=== PATIENT | female | born 1965 | race American Indian/Alaskan Native ===

== ENCOUNTER 2020-05-31 16:41 | Emergency (ER) | payer SELFPAY ==
[2020-05-31] MEDS ORDERED: ACETAMINOPHEN 325 MG TAB PO ONE (17:12)
[2020-05-31] MEDS ORDERED: SODIUM CHLORIDE 0.9% 500 ML 500 ML IV ONE (17:14)
[2020-05-31 17:49] LABS: Basophils % (Auto) 0.4 % (0.0-1.8); Hematocrit 33.8 % (30.3-42.9); Hemoglobin 11.6 gm/dl (10.1-14.3); Lymphocytes # (Auto) 1.1 K/mm3 (1.2-5.4); Lymphocytes % (Auto) 9.9 % (13.4-35.0); Mean Corpuscular HGB Conc 34 % (30-34); Mean Corpuscular Volume 112 fl (79-97); Monocytes # (Auto) 0.9 K/mm3 (0.0-0.8); Monocytes % (Auto) 7.7 % (0.0-7.3); Platelet Count 169 K/mm3 (140-440); Red Blood Count 3.02 M/mm3 (3.65-5.03); Red Cell Distribution Width 13.7 % (13.2-15.2)
--- NOTE | 2020-05-31 18:10 | XRay Report ---
CHEST 1 VIEW 05/31/2020 5:57 PM INDICATION / CLINICAL INFORMATION: possible Sepsis. COMPARISON: None available. FINDINGS: SUPPORT DEVICES: None. HEART / MEDIASTINUM: No significant abnormality. LUNGS / PLEURA: No significant pulmonary or pleural abnormality. No pneumothorax. ADDITIONAL FINDINGS: No significant additional findings. IMPRESSION: 1. No acute findings. Signer Name: Wyatt Laughlin MD Signed: 05/31/2020 6:05 PM Workstation Name: [id number]
[2020-05-31 18:12] LABS: Albumin 3.6 g/dL (3.9-5); Calcium 8.4 mg/dL (8.4-10.2)
[2020-05-31 18:26] LABS: INR 1.01 (0.87-1.13)
[2020-05-31 19:39] LABS: Bilirubin,Urine NEG (Negative); Blood,Urine LG (Negative); Color,Urine Yellow (Yellow); Mucus,Urine FEW /HPF; Protein,Urine <15 mg/dL mg/dL (Negative); Urobilinogen,Urine < 2.0 mg/dL (<2.0); WBC,Urine < 1.0 /HPF (0.0-6.0)
--- NOTE | 2020-05-31 21:35 | Emergency Department Report ---
ED General Adult HPI - General Chief complaint: Chest Pain Stated complaint: CHEST WALL PAIN Time Seen by Provider: 05/31/20 21:13 Source: patient Mode of arrival: Wheelchair Limitations: No Limitations - History of Present Illness Initial comments: 55-year-old female presents to ED with complaint of diffuse body pain. Patient states symptoms started earlier today. She reports chest wall pain, and back pain in addition to the rest of her body hurting. Pain is worse with movement. Patient reports vomiting, diarrhea, cough. Patient also reports cocaine use on yesterday. -: This morning Severity scale (0 -10): 8 Quality: aching Consistency: constant Improves with: none Worsens with: movement Associated Symptoms: chest pain, cough, nausea/vomiting - Related Data Previous Rx's Medication Instructions Recorded Last Taken Type methOCARBAMOL [Robaxin TAB] 500 mg PO Q8HR PRN #20 tablet 05/31/20 Unknown Rx Allergies Allergy/AdvReac Type Severity Reaction Status Date / Time No Known Allergies Allergy Verified 05/31/20 21:14 ED Review of Systems ROS: Stated complaint: CHEST WALL PAIN Other details as noted in HPI Comment: All other systems reviewed and negative Constitutional: fever Respiratory: cough Cardiovascular: chest pain Gastrointestinal: vomiting, diarrhea Musculoskeletal: back pain, myalgia ED Past Medical Hx - Past Medical History Previous Medical History?: No - Surgical History Past Surgical History?: No - Medications Home Medications: Home Medications Medication Instructions Recorded Confirmed Last Taken Type methOCARBAMOL [Robaxin TAB] 500 mg PO Q8HR PRN #20 tablet 05/31/20 Unknown Rx ED Physical Exam - General Limitations: No Limitations General appearance: alert, in no apparent distress - Head Head exam: Present: atraumatic, normocephalic - Eye Eye exam: Present: normal appearance, EOMI - ENT ENT exam: Present: mucous membranes moist - Neck Neck exam: Present: normal inspection - Respiratory Respiratory exam: Present: normal lung sounds bilaterally, chest wall tenderness. Absent: respiratory distress - Cardiovascular Cardiovascular Exam: Present: regular rate, normal rhythm - GI/Abdominal GI/Abdominal exam: Present: soft. Absent: distended, tenderness - Extremities Exam Extremities exam: Present: normal inspection - Back Exam Back exam: Present: paraspinal tenderness. Absent: vertebral tenderness - Neurological Exam Neurological exam: Present: alert, oriented X3 - Psychiatric Psychiatric exam: Present: normal affect, normal mood - Skin Skin exam: Present: warm, dry, intact, normal color ED Course Vital Signs 05/31/20 05/31/20 05/31/20 17:11 21:40 23:13 Temperature 102.8 F H 99.3 F 99.0 F Pulse Rate 95 H 93 H 78 Respiratory 18 18 18 Rate Blood Pressure 118/88 173/92 166/92 [Left] O2 Sat by Pulse 95 96 98 Oximetry ED Medical Decision Making - Lab Data Result diagrams: 05/31/20 17:21 05/31/20 17:21 - EKG Data -: EKG Interpreted by Me EKG shows normal: sinus rhythm, axis, intervals, QRS complexes, ST-T waves Rate: normal - EKG Data Interpretation: no acute changes - Radiology Data Radiology results: report reviewed, image reviewed - Medical Decision Making Patient with temp of 102.8 upon arrival. She reports generalized body aches, which includes chest pain. Patient has chest wall tenderness on exam. EKG unremarkable, troponin is negative. UA and chest x-ray are both negative. Patient reports cough as well. COVID-19 is in the differential. However, patient is not hypoxic, at rest or with ambulation. She will be discharged at this time. Patient advised to seek outpatient testing for COVID-19. She has been instructed to quarantine for at least 14 days. Patient also reports cocaine use, and I have spoken with her regarding cessation. Return precautions given. - Differential Diagnosis UTI, pneumonia, COVID-19, ACS Critical care attestation.: If time is entered above; I have spent that time in minutes in the direct care of this critically ill patient, excluding procedure time. ED Disposition Clinical Impression: Costochondritis, Viral respiratory illness Disposition: DC-01 TO HOME OR SELFCARE Is pt being admited?: No Condition: Stable Instructions: COVID-19 Additional Instructions: Your chest xray is normal. Your oxygen level is normal. There is a possibility that you may have coronavirus. Please follow up as an outpatient to get tested. You will need to quarantine for at least 14 days. Prescriptions: methOCARBAMOL [Robaxin TAB] 500 mg PO Q8HR PRN #20 tablet PRN Reason: Muscle Spasm Referrals: PRIMARY CARE, [Primary Care Provider] - 3-5 Days [facility] [Provider Group] - 3-5 Days [facility] [Outside] - 3-5 Days [facility] [Outside] - 3-5 Days LIZET ENGLISH MD [Staff Physician] - 3-5 Days Time of Disposition: 22:26
[2020-05-31 23:14] VITALS: BP 166/92
== END 2020-05-31 23:14 | disposition home or self-care (01) ==
LOC: ED 16:41
DX: M94.0 Chondrocostal junction syndrome [Tietze] (principal); J06.9 Acute upper respiratory infection, unspecified
CPT/HCPCS: 36415; 71045; 80053; 81001; 82140; 82805; 84484; 85025; 85610; 87040; 87086; 93005; 99285

== ENCOUNTER 2021-12-22 15:52 | Emergency (ER) | payer SELFPAY ==
[2021-12-22 17:43] LABS: Hematocrit 38.5 % (30.3-42.9); Hemoglobin 12.3 gm/dl (10.1-14.3); Mean Corpuscular HGB Conc 32 % (30-34); Mean Corpuscular Volume 110 fl (79-97); Platelet Count 191 K/mm3 (140-440); Red Blood Count 3.52 M/mm3 (3.65-5.03)
--- NOTE | 2021-12-22 17:54 | Event Note ---
ED Screening Note Date of service: 12/22/21 Time: 17:53 ED Screening Note: Patient presents with complaints of right flank pain and urinary frequency x3 months This initial assessment/diagnostic orders/clinical plan/treatment(s) is/are subject to change based on patients health status, clinical progression and re- assessment by fellow clinical providers in the ED. Further treatment and workup at subsequent clinical providers discretion. Patient/guardian urged not to elope from the ED as their condition may be serious if not clinically assessed and managed. Initial orders include: Labs CT
[2021-12-22 18:03] LABS: Alanine Aminotransferase 26 units/L (7-56); Albumin 3.7 g/dL (3.9-5); BUN/Creatinine Ratio 16; Blood Urea Nitrogen 13 mg/dL (7-17); Calcium 9.4 mg/dL (8.4-10.2); Hemolysis Index 6
--- NOTE | 2021-12-22 18:21 | Emergency Department Report ---
ED Back Pain/Injury HPI - General Chief Complaint: Abdominal Pain Stated Complaint: RT SIDE PAIN/FREQUENT URINING Time Seen by Provider: 12/22/21 17:53 Source: patient Limitations: No Limitations - History of Present Illness Initial Comments: Chief complaint: "Pain in my back and frequent urination." HPI: This is a 56-year-old female with history of hypertension who presents with a "knot in her back. She has had right flank pain for several months. Recently she has had frequent urination with odor. She denies fever, vomiting, abdominal pain. No radiation of the right flank pain. It feels like a dull ache. MD Complaint: back pain -: Gradual, days(s) (Several days of frequent urination), month(s) (3 months of back pain) Place: home Severity: mild Quality: dull Consistency: constant Improves With: none Worsens With: none Associated Symptoms: denies other symptoms - Related Data Previous Rx's Medication Instructions Recorded Last Taken Type methOCARBAMOL [Robaxin TAB] 500 mg PO Q8HR PRN #20 tablet 05/31/20 Unknown Rx cephALEXin [Keflex] 500 mg PO TID 5 Days #15 cap 12/22/21 Unknown Rx traMADoL [Ultram 50 MG tab] 50 mg PO Q6HR PRN #10 tablet 12/22/21 Unknown Rx Allergies Allergy/AdvReac Type Severity Reaction Status Date / Time No Known Allergies Allergy Verified 05/31/20 21:14 ED Review of Systems ROS: Stated complaint: RT SIDE PAIN/FREQUENT URINING Other details as noted in HPI Comment: All other systems reviewed and negative Constitutional: denies: chills, fever, malaise Respiratory: denies: cough, shortness of breath Cardiovascular: denies: chest pain Gastrointestinal: denies: abdominal pain, nausea, vomiting Genitourinary: frequency Musculoskeletal: back pain ED Past Medical Hx - Past Medical History Previous Medical History?: Yes Hx Hypertension: Yes - Social History Smoking Status: Current Every Day Smoker Substance Use Type: Alcohol - Medications Home Medications: Home Medications Medication Instructions Recorded Confirmed Last Taken Type methOCARBAMOL [Robaxin TAB] 500 mg PO Q8HR PRN #20 tablet 05/31/20 Unknown Rx cephALEXin [Keflex] 500 mg PO TID 5 Days #15 cap 12/22/21 Unknown Rx traMADoL [Ultram 50 MG tab] 50 mg PO Q6HR PRN #10 tablet 12/22/21 Unknown Rx ED Physical Exam - General Limitations: No Limitations General appearance: alert, in no apparent distress, other (Well-appearing steady normal gait appears comfortable) - Head Head exam: Present: atraumatic, normocephalic - Eye Eye exam: Present: normal appearance - ENT ENT exam: Present: mucous membranes moist - Neck Neck exam: Present: normal inspection, full ROM - Respiratory Respiratory exam: Present: normal lung sounds bilaterally. Absent: respiratory distress, wheezes, rales, rhonchi - Cardiovascular Cardiovascular Exam: Present: regular rate, normal rhythm, normal heart sounds. Absent: systolic murmur, diastolic murmur, rubs, gallop - GI/Abdominal GI/Abdominal exam: Present: soft, normal bowel sounds. Absent: distended, tenderness, guarding, rebound - Extremities Exam Extremities exam: Present: normal inspection - Back Exam Back exam: Present: normal inspection, full ROM. Absent: tenderness, CVA tenderness (R), CVA tenderness (L), muscle spasm, paraspinal tenderness, vertebral tenderness - Neurological Exam Neurological exam: Present: alert, oriented X3 - Psychiatric Psychiatric exam: Present: normal affect, normal mood - Skin Skin exam: Present: warm, dry, intact, normal color. Absent: rash ED Course Vital Signs 12/22/21 16:43 Temperature 97.6 F Pulse Rate 89 Respiratory 16 Rate Blood Pressure 178/110 O2 Sat by Pulse 99 Oximetry ED Medical Decision Making - Lab Data Result diagrams: 12/22/21 17:12 12/22/21 17:12 - Medical Decision Making 1. Muscle skeletal back pain: Prescribed tramadol 2. UTI: Prescribed cephalexin From presentation I do not suspect pyelonephritis kidney stone. Patient appears well. Referred to internal medicine physician. CBC chemistry within normal limits. Vital signs stable. Critical care attestation.: If time is entered above; I have spent that time in minutes in the direct care of this critically ill patient, excluding procedure time. ED Disposition Clinical Impression: Musculoskeletal back pain, UTI (urinary tract infection) Disposition: HOME / SELF CARE / HOMELESS Is pt being admited?: No Does the pt Need Aspirin: No Condition: Stable Instructions: Abdominal Pain (ED), Urinary Tract Infection, Adult, [id number], Chronic Back Pain, [id number] Prescriptions: cephALEXin [Keflex] 500 mg PO TID 5 Days #15 cap traMADoL [Ultram 50 MG tab] 50 mg PO Q6HR PRN #10 tablet PRN Reason: Pain Referrals: LIZET ENGLISH MD [Staff Physician] - 3-5 Days
[2021-12-22 18:33] VITALS: BP 164/104
[2021-12-23 07:20] LABS: Monocytes % (Manual) 21 % (0.0-7.3)
[2021-12-23 07:21] LABS: Large Platelets Few; Platelet Satelitosis Few
== END 2021-12-22 19:06 | disposition home or self-care (01) ==
LOC: ED 15:52
DX: N39.0 Urinary tract infection, site not specified (principal); M79.18 Myalgia, other site; I10 Essential (primary) hypertension; F17.200 Nicotine dependence, unspecified, uncomplicated; Z72.89 Other problems related to lifestyle; Z79.899 Other long term (current) drug therapy
CPT/HCPCS: 36415; 80053; 85007; 85025; 99283

== ENCOUNTER 2022-05-18 20:56 | Inpatient (IN) | payer SELFPAY ==
[2022-05-18] MEDS ORDERED: SODIUM CHLORIDE 0.9% 1000 ML 1,000 ML IV ONE ×2 (21:44→22:32)
[2022-05-18] MEDS ORDERED: ONDANSETRON 4 MG/2 ML INJ IV ONE (21:44)
[2022-05-18 22:20] LABS: Basophils % (Auto) 0.3 % (0.0-1.8); Eosinophils % (Auto) 0.1 % (0.0-4.3); Hematocrit 31.7 % (30.3-42.9); Hemoglobin 10.6 gm/dl (10.1-14.3); Lymphocytes # (Auto) 0.7 K/mm3 (1.2-5.4); Lymphocytes % (Auto) 8.3 % (13.4-35.0); Mean Corpuscular HGB Conc 33 % (30-34); Mean Corpuscular Volume 108 fl (79-97); Monocytes # (Auto) 0.5 K/mm3 (0.0-0.8); Monocytes % (Auto) 6.1 % (0.0-7.3); Platelet Count 174 K/mm3 (140-440); Red Blood Count 2.94 M/mm3 (3.65-5.03); Red Cell Distribution Width 14.3 % (13.2-15.2)
[2022-05-18 22:32] LABS: Albumin 3.5 g/dL (3.9-5); Calcium 8.9 mg/dL (8.4-10.2)
--- NOTE | 2022-05-18 23:15 | XRay Report ---
CHEST 1 VIEW INDICATION / CLINICAL INFORMATION: CONFUSION; PNA. COMPARISON: Chest x-ray 05/31/2020 FINDINGS: SUPPORT DEVICES: None. HEART / MEDIASTINUM: Heart size is within normal limits. Mediastinal contour demonstrates no signific ant abnormality. LUNGS / PLEURA: No significant pulmonary abnormality. BONES: No significant osseous abnormality. ADDITIONAL FINDINGS: No significant additional findings. IMPRESSION: 1. No active cardiopulmonary disease. Signer Name: Ozzy Fleming II, MD Signed: 05/18/2022 11:11 PM Workstation Name: [id number]
[2022-05-18 23:18] LABS: Bilirubin,Urine Negative (Negative); Blood,Urine Small (Negative); Color,Urine Yellow (Yellow)
[2022-05-18 23:19] LABS: Bacteria,Urine 1+ /HPF (Negative); Hyaline Casts,Urine 2 /LPF; Mucus,Urine FEW /HPF; Urobilinogen,Urine < 2.0 mg/dL (<2.0)
[2022-05-18 23:29] LABS: Amphetamine Screen,Urine PRESUMPTIVE NEGATIVE; Benzodiazepines Screen,Urine PRESUMPTIVE NEGATIVE; Cannabinoid Screen,Urine PRESUMPTIVE NEGATIVE; Cocaine Screen,Urine PRESUMPTIVE POSITIVE; Methadone Screen,Urine PRESUMPTIVE NEGATIVE; Opiate Screen,Urine PRESUMPTIVE NEGATIVE
--- NOTE | 2022-05-18 23:34 | Cat Scan Report ---
CT HEAD WITHOUT CONTRAST INDICATION / CLINICAL INFORMATION: CONFUSION. TECHNIQUE: CT head was performed without administration of intravenous contrast. All CT scans at this location are performed using CT dose reduction for ALARA by means of automated exposure control. COMPARISON: None available. FINDINGS: CEREBRAL HEMISPHERES: Generalized atrophy and bilateral regions of periventricular white matter hypoa ttenuation compatible with microvascular ischemia are demonstrated. No midline shift. Basal cisterns patent. HEMORRHAGE: None. CEREBELLUM / BRAINSTEM: No significant abnormality. ORBITS: No significant abnormality. SOFT TISSUES: No significant abnormality. SKULL: No significant abnormality. PARANASAL SINUSES / MASTOID AIR CELLS: Normal as visualized. ADDITIONAL FINDINGS: None. IMPRESSION: 1. No acute intracranial abnormality. Signer Name: Ozzy Fleming II, MD Signed: 05/18/2022 11:29 PM Workstation Name: [id number]
--- NOTE | 2022-05-18 23:53 | Emergency Department Report ---
ED General Adult HPI - General Chief complaint: Overdose Stated complaint: OVERDOSE PUI?: No Time Seen by Provider: 05/18/22 21:41 Source: EMS Mode of arrival: Stretcher Limitations: No Limitations - History of Present Illness Initial comments: EMS CALLED TO [facility] FOR UNRESPONSIVE PATIENT AND UPON ARRIVAL PATIENT RESPONSIVE TO PAINFUL STIMULI WITH POSSIBLE OVERDOSE TO COCAINE AND PATIENT RESPONDED TO [facility]. PATIENT STATES SHE WAS OUTSIDE IN THE PARKING LOT FOR APPROXIMATELY 2 HOURS AND ONLY TOOK COCAINE AND DENIES TAKING ANYTHING ELSE. PATIENT STATES SHE IS THIRSTY AND WANTS WATER. Patient denies any other symptoms such as fever chill night sweat dizziness blurred vision lightheadedness headache tinnitus ear pain runny nose sore throat loss of taste loss of smell chest pain palpitation short of breath cough abdominal pain nausea vomiting diarrhea constipation joint pain muscle pain new rash and heat or cold intolerance. Severity scale (0 -10): 0 - Related Data Previous Rx's Medication Instructions Recorded Last Taken Type methOCARBAMOL [Robaxin TAB] 500 mg PO Q8HR PRN #20 tablet 05/31/20 Unknown Rx cephALEXin [Keflex] 500 mg PO TID 5 Days #15 cap 12/22/21 Unknown Rx traMADoL [Ultram 50 MG tab] 50 mg PO Q6HR PRN #10 tablet 12/22/21 Unknown Rx Allergies Allergy/AdvReac Type Severity Reaction Status Date / Time No Known Allergies Allergy Verified 05/31/20 21:14 ED Review of Systems ROS: Stated complaint: OVERDOSE Other details as noted in HPI Comment: All other systems reviewed and negative Constitutional: no symptoms reported Eyes: as per HPI ENT: as per HPI Respiratory: no symptoms reported Cardiovascular: as per HPI Endocrine: no symptoms reported Gastrointestinal: as per HPI Genitourinary: as per HPI Musculoskeletal: as per HPI Skin: as per HPI Neurological: as per HPI Psychiatric: as per HPI Hematological/Lymphatic: as per HPI ED Past Medical Hx - Past Medical History Previous Medical History?: Yes Hx Hypertension: Yes (NON-COMPLIANT) Hx HIV: Yes Additional medical history: DRUG USE - Surgical History Past Surgical History?: No - Social History Smoking Status: Current Every Day Smoker Substance Use Type: Alcohol - Medications Home Medications: Home Medications Medication Instructions Recorded Confirmed Last Taken Type methOCARBAMOL [Robaxin TAB] 500 mg PO Q8HR PRN #20 tablet 05/31/20 Unknown Rx cephALEXin [Keflex] 500 mg PO TID 5 Days #15 cap 12/22/21 Unknown Rx traMADoL [Ultram 50 MG tab] 50 mg PO Q6HR PRN #10 tablet 12/22/21 Unknown Rx ED Physical Exam - General Limitations: Other (PATIENT APPEARS SLIGHTLY CONFUSED/SLOW MENTATION) General appearance: alert, in no apparent distress - Head Head exam: Present: atraumatic, normocephalic, normal inspection - Eye Eye exam: Present: normal appearance, PERRL, EOMI Pupils: Present: normal accommodation - ENT ENT exam: Present: normal exam, mucous membranes dry - Neck Neck exam: Present: normal inspection, full ROM - Respiratory Respiratory exam: Present: normal lung sounds bilaterally - Cardiovascular Cardiovascular Exam: Present: regular rate, tachycardia, normal heart sounds - GI/Abdominal GI/Abdominal exam: Present: soft - Extremities Exam Extremities exam: Present: normal inspection, full ROM, normal capillary refill. Absent: tenderness - Back Exam Back exam: Present: normal inspection, full ROM - Neurological Exam Neurological exam: Present: alert, altered, oriented X3 (BUT WITH SLOW ME NTATION/CONFUSION), CN II-XII intact, normal gait - Psychiatric Psychiatric exam: Present: normal affect, normal mood - Skin Skin exam: Present: warm, dry, intact ED Course Vital Signs 05/18/22 21:32 Temperature 103.1 F H Pulse Rate 110 H Respiratory 16 Rate Blood Pressure 164/109 O2 Sat by Pulse 95 Oximetry - Reevaluation(s) Reevaluation #1: 05/18/22 23:[address] THOMPSON WHO KINDLY ACCEPTED THE PATIENT. ED Medical Decision Making - Lab Data Result diagrams: 05/18/22 22:01 05/18/22 22:01 Critical care attestation.: If time is entered above; I have spent that time in minutes in the direct care of this critically ill patient, excluding procedure time. ED Disposition Clinical Impression: UTI (urinary tract infection), NOLVIA (acute kidney injury), Dehydration, Cocaine abuse, Metabolic encephalopathy Disposition: ADMITTED INPATIENT Is pt being admited?: Yes Does the pt Need Aspirin: No Condition: Stable Time of Disposition: 00:00
[2022-05-18] MEDS ORDERED: ACETAMINOPHEN 325 MG TAB PO ONE (23:55)
[2022-05-18] MEDS ORDERED: cefTRIAXone/NS 1 GM/50 ML 1 GM/50 ML BAG IV ONE (23:56)
[2022-05-19] MEDS ORDERED: MORPHINE 2 MG/1 ML INJ IV PRN (00:32)
[2022-05-19] MEDS ORDERED: ONDANSETRON 4 MG/2 ML INJ IV PRN (00:32)
[2022-05-19] MEDS ORDERED: MORPHINE 4 MG/1 ML INJ IV PRN (00:32)
[2022-05-19] MEDS ORDERED: MAGNESIUM HYDROXIDE (MOM) ORAL LIQD UDC PO PRN (00:32)
--- NOTE | 2022-05-19 00:41 | History and Physical Report ---
History of Present Illness Date of examination: 05/19/22 Date of admission: 05/19/2022 Chief complaint: Unresponsiveness History of present illness: 57-year-old female with known history of hypertension and HIV brought into the emergency room today via EMS for evaluation of unresponsiveness. EMS had responded to call a "full house for an unresponsive patient. Patient was said to be at the parking lot for about 2 hours and had taken some cocaine earlier today. Most of the history was gotten from the ER staff as patient appears confused and unable to give a very good history at this time. Upon arrival in the emergency room patient was found to be tachycardic and also had a temperature of about 103 F. Work-up in the emergency room today, lab reveals a CO2 of 15, elevated creatinine of 1.8. Urinalysis significant for UTI. Patient being admitted for unresponsiveness possibly secondary to cocaine overdose, metabolic acidosis, NOLVIA and UTI. Past History Past Medical History: HIV/AIDS, hyperthyroidism Past Surgical History: No surgical history Social history: smoking (Current daily smoker), alcohol abuse, other (Drug Abuse) Family history: no significant family history Medications and Allergies Allergies Allergy/AdvReac Type Severity Reaction Status Date / Time No Known Allergies Allergy Verified 05/31/20 21:14 Home Medications Medication Instructions Recorded Confirmed Last Taken Type methOCARBAMOL [Robaxin TAB] 500 mg PO Q8HR PRN #20 tablet 05/31/20 Unknown Rx cephALEXin [Keflex] 500 mg PO TID 5 Days #15 cap 12/22/21 Unknown Rx traMADoL [Ultram 50 MG tab] 50 mg PO Q6HR PRN #10 tablet 12/22/21 Unknown Rx Active Meds: Active Medications Acetaminophen (Acetaminophen 325 Mg Tab) 650 mg PO Q4H PRN PRN Reason: Pain MILD(1-3)/Fever >100.5/AGUILAR Review of Systems ROS unobtainable: due to mental status Exam - Constitutional Vitals: Temp Pulse Resp BP Pulse Ox 103.1 F H 110 H 16 164/109 95 05/18/22 21:32 05/18/22 21:32 05/18/22 21:32 05/18/22 21:32 05/18/22 21:32 General appearance: Present: no acute distress, well-nourished, other (Dry Oral Mucosa) - EENT Eyes: Present: PERRL, EOM intact ENT: hearing intact, clear oral mucosa, dentition normal - Neck Neck: Present: supple, normal ROM - Respiratory Respiratory effort: normal Respiratory: bilateral: CTA - Cardiovascular Rhythm: regular Heart Sounds: Present: S1 & S2. Absent: gallop, systolic murmur, diastolic murmur, rub, click - Extremities Extremities: no ischemia, pulses intact, No edema, normal temperature, Full ROM Peripheral Pulses: within normal limits - Abdominal General gastrointestinal: Present: soft, non-tender, non-distended, normal bowel sounds. Absent: mass - Integumentary Integumentary: Present: clear, warm, dry, normal turgor. Absent: rash - Musculoskeletal Musculoskeletal: strength equal bilaterally - Psychiatric Psychiatric: cooperative - Neurologic Neurologic: CNII-XII intact, no focal deficits, moves all extremities, other (Appears slightly confused.) Results - Labs CBC & Chem 7: 05/18/22 22:01 05/18/22 22:01 Labs: Abnormal lab results 05/18/22 05/18/22 05/18/22 Range/Units 22:01 22:01 22:01 RBC 2.94 L (3.65-5.03) M/mm3 MCV 108 H (79-97) fl MCH 36 H (28-32) pg Lymph % (Auto) 8.3 L (13.4-35.0) % Lymph # (Auto) 0.7 L (1.2-5.4) K/mm3 Seg Neutrophils % 85.2 H (40.0-70.0) % Chloride 107.8 H (98-107) mmol/L Carbon Dioxide 15 L (22-30) mmol/L Creatinine 1.8 H (0.6-1.2) mg/dL Total Protein 9.4 H (6.3-8.2) g/dL Albumin 3.5 L (3.9-5) g/dL Urine Blood (Negative) Urine WBC (Auto) (0.0-6.0) /HPF Salicylates < 0.3 L (2.8-20.0) mg/dL Acetaminophen (10.0-30.0) ug/mL 05/18/22 05/18/22 Range/Units 22:01 Unknown RBC (3.65-5.03) M/mm3 MCV (79-97) fl MCH (28-32) pg Lymph % (Auto) (13.4-35.0) % Lymph # (Auto) (1.2-5.4) K/mm3 Seg Neutrophils % (40.0-70.0) % Chloride (98-107) mmol/L Carbon Dioxide (22-30) mmol/L Creatinine (0.6-1.2) mg/dL Total Protein (6.3-8.2) g/dL Albumin (3.9-5) g/dL Urine Blood Small A (Negative) Urine WBC (Auto) 90.0 H (0.0-6.0) /HPF Salicylates (2.8-20.0) mg/dL Acetaminophen 5.0 L (10.0-30.0) ug/mL Assessment and Plan Assessment: 1. Acute encephalopathy-possibly secondary to drug overdose 2. Metabolic acidosis 3. NOLVIA 4. UTI 5. Hypertension 6. History of HIV. Plan: 1. Patient admitted and placed on empiric IV antibiotics for UTI. 2. Patient placed on IV fluid normal saline. Will monitor chemistry 3. Will resume routine home medications once reconciled. 4. We will continue to monitor of mental status. DVT prophylaxis: Subcutaneous heparin CODE STATUS: Full code.
[2022-05-19] MEDS ORDERED: cefTRIAXone/NS 1 GM/50 ML 1 GM/50 ML BAG IV SCH (08:00)
[2022-05-19] MEDS ORDERED: FAMOTIDINE 20 MG/2 ML INJ IV SCH (10:00)
--- NOTE | 2022-05-19 10:59 | Progress Note ---
<GERA YOUNG - Last Filed: 05/19/22 16:29> Assessment and Plan Assessment and plan: This is a 57-year-old female with known past medical history of HIV/AIDS, HTN, polysubstances abuse, and tobacco dependence admitted for unresponsiveness, possible cocaine overdose. Hospital Course to Date: 05/19: Mentation improved this am. Still drowsy and confused, but easily arousable, following commands. Patient is afebrile, cultures, lactic acid, and procal pending. Continue IVF hydration and empiric IV Abx for UTI. Check 2D Echo. Patient also presented with an NOLVIA, most likely vasomotor nephropathy, continue IVF hydration. Continue to monitor renal function, consider nephrology consult if worsen. Okay to start patient on a diet if patient pass bedside swallow. Attempted to get in contact with patient's daughter, Symone Lamb via phone number on record at . But there was no answer, left a voicemail with brief detail and call back information provided. Team will attempt at a later time. Assessment and Plan #Acute Toxic Encephalopathy #Possible Cocaine Overdose #Polysubstances Abuse - Found in a parking lot unresponsive, possible cocaine overdose - UDS + cocaine - CT head/Brain with no acute intracranial abnormality. - mentation improved this am - Still drowsy and confused, but easily arousable, following commands. - Continue IVF hydration - Frequent reorientation - Avoid sedative agents - Maintenance of sleep-wake cycle #Acute Kidney Injury(NOLVIA) most likely vasomotor Nephropathy #Metabolic Acidosis - Per records baseline Scr. is 1.0, presented with a Scr as high as 1.8 - Probably due to dehydration - Continue IVF hydration - Strict intake and output - Avoid nephrotoxic medications - Monitor and replace electrolytes as needed #Urinary Tract Infection(UTI) - Presented with a high fever TMAx 103.1, and tachycardia - UA consistent with UTI - Blood cultures and urine culture pending - Fevers improved, WBCs wnr - Continue IVF hydrationEmpiric IV Abx- Rocephin - Check procal and lactic acid - Continue to F/U on cultures - Daily CBC monitor - Consider ID consult if febrile or/and if leukocytosis occur #Hypertension - BP stable this am - Continue blood pressure monitor per protocol - Maintain SBP in the 160 - PRN Hydralazine for hypertension - Check 2D Echo #H/o HIV/AIDS - Unclear if patients is on any therapy - Per patient, she is not on any medications - Reassess once patient is oriented and more appropriate #GI/DVT Prophylaxis - PPI- Pepcid - Heparin SubQ - SCDs to bilateral lower extremities while in bed #Advance Care Planning - Patient is possibly homeless - Attempted to get in contact with patient's daughter, Symone Lamb via phone number on record at . But there was no answer, left a voicemail wi th brief detail and call back information provided. Team to follow up at a later time. +CCT 30 minutes History Interval history: Patient seen and examined in the ED. Drowsy and confused, only AAO to self. Stable on RA, denied any pain nor any discomfort at this time, VSS. Hospitalist Physical - Constitutional Vitals: Temp Pulse Resp BP Pulse Ox 99 F 65 16 144/76 95 05/19/22 04:07 05/19/22 04:04 05/18/22 21:32 05/19/22 04:04 05/18/22 21:32 General appearance: Present: no acute distress, well-nourished, other (Drowsy, confused) - EENT Eyes: Present: PERRL ENT: hearing intact - Neck Neck: Present: normal ROM - Respiratory Respiratory effort: normal Respiratory: bilateral: diminished - Cardiovascular Rhythm: regular Heart Sounds: Present: S1 & S2 - Extremities Extremities: no ischemia, pulses intact, pulses symmetrical Peripheral Pulses: within normal limits - Abdominal General gastrointestinal: soft, non-distended, normal bowel sounds - Integumentary Integumentary: Present: warm, dry - Psychiatric Psychiatric: appropriate mood/affect, cooperative, other (Drowsy, confused) - Neurologic Neurologic: moves all extremities, other (Drowsy, confused) - Allied Health Allied health notes reviewed: nursing HEART Score - HEART Score Troponin: Troponin T < 0.010 ng/mL (0.00-0.029) 05/19/22 00:11 Results - Labs CBC & Chem 7: 05/18/22 22:01 05/18/22 22:01 Labs: Laboratory Last Values WBC 8.0 K/mm3 (4.5-11.0) 05/18/22 22:01 RBC 2.94 M/mm3 (3.65-5.03) L 05/18/22 22: Hgb 10.6 gm/dl (10.1-14.3) 05/18/22 22: Hct 31.7 % (30.3-42.9) 05/18/22 22: MCV 108 fl (79-97) H 05/18/22 22:01 MCH 36 pg (28-32) H 05/18/22 22: MCHC 33 % (30-34) 05/18/22 22: RDW 14.3 % (13.2-15.2) 05/18/22 22: Plt Count 174 K/mm3 (140-440) 05/18/22 22: Lymph % (Auto) 8.3 % (13.4-35.0) L 05/18/22 22: [place] % (Auto) 6.1 % (0.0-7.3) 05/18/22 22: Eos % (Auto) 0.1 % (0.0-4.3) 05/18/22 22: Baso % (Auto) 0.3 % (0.0-1.8) 05/18/22 22: Lymph # (Auto) 0.7 K/mm3 (1.2-5.4) L 05/18/22 22: [place] # (Auto) 0.5 K/mm3 (0.0-0.8) 05/18/22 22: Eos # (Auto) 0.0 K/mm3 (0.0-0.4) 05/18/22 22: Baso # (Auto) 0.0 K/mm3 (0.0-0.1) 05/18/22 22: Seg Neutrophils % 85.2 % (40.0-70.0) H 05/18/22 22: Seg Neutrophils # 6.8 K/mm3 (1.8-7.7) 05/18/22 22:01 Sodium 137 mmol/L (137-145) 05/18/22 22: Potassium 3.8 mmol/L (3.6-5.0) 05/18/22 22: Chloride 107.8 mmol/L (98-107) H 05/18/22 22:01 Carbon Dioxide 15 mmol/L (22-30) L 05/18/22 22:01 Anion Gap 18 mmol/L 05/18/22 22:01 BUN 17 mg/dL (7-17) 05/18/22 22:01 Creatinine 1.8 mg/dL (0.6-1.2) H 05/18/22 22:01 Estimated GFR 35 ml/min 05/18/22 22:01 BUN/Creatinine Ratio 9 % 05/18/22 22:01 Glucose 95 mg/dL (65-100) 05/18/22 22:01 Lactic Acid 0.70 mmol/L (0.7-2.0) 05/19/22 08:36 Calcium 8.9 mg/dL (8.4-10.2) 05/18/22 22:01 Magnesium 1.70 mg/dL (1.7-2.3) 05/18/22 22:01 Total Bilirubin 0.30 mg/dL (0.1-1.2) 05/18/22 22:01 AST 38 units/L (5-40) 05/18/22 22:01 ALT 29 units/L (7-56) 05/18/22 22:01 Alkaline Phosphatase 97 units/L (35-129) 05/18/22 22:01 Troponin T < 0.010 ng/mL (0.00-0.029) 05/19/22 00:11 NT-Pro-B Natriuret Pep 142.6 pg/mL (0-900) 05/19/22 00:11 Total Protein 9.4 g/dL (6.3-8.2) H 05/18/22 22:01 Albumin 3.5 g/dL (3.9-5) L 05/18/22 22:01 Albumin/Globulin Ratio 0.6 % 05/18/22 22:01 Urine Color Yellow (Yellow) 05/18/22 Unknown Urine Turbidity Hazy (Clear) 05/18/22 Unknown Urine pH 5.0 (5.0-7.0) 05/18/22 Unknown Ur Specific [place] 1.025 (1.003-1.030) 05/18/22 Unknown Urine Protein 100 mg/dl mg/dL (Negative) 05/18/22 Unknown Urine Glucose (UA) Negative mg/dL (Negative) 05/18/22 Unknown Urine Ketones Negative mg/dL (Negative) 05/18/22 Unknown Urine Blood Small (Negative) A 05/18/22 Unknown Urine Nitrite Negative (Negative) 05/18/22 Unknown Urine Bilirubin Negative (Negative) 05/18/22 Unknown Urine Urobilinogen < 2.0 mg/dL (<2.0) 05/18/22 Unknown Ur Leukocyte Esterase Trace (Negative) 05/18/22 Unknown Urine WBC (Auto) 90.0 /HPF (0.0-6.0) H 05/18/22 Unknown Urine RBC (Auto) 7.0 /HPF (0.0-6.0) 05/18/22 Unknown U Epithel Cells (Auto) 6.0 /HPF (0-13.0) 05/18/22 Unknown Urine Bacteria (Auto) 1+ /HPF (Negative) 05/18/22 Unknown Hyaline Casts 2 /LPF 05/18/22 Unknown Urine Mucus Few /HPF 05/18/22 Unknown Urine Yeast (Budding) Few /HPF 05/18/22 Unknown Salicylates < 0.3 mg/dL (2.8-20.0) L 05/18/22 22:01 Urine Opiates Screen Presumptive negative 05/18/22 Unknown Urine Methadone Screen Presumptive negative 05/18/22 Unknown Acetaminophen 5.0 ug/mL (10.0-30.0) L 05/18/22 22:01 Ur Barbiturates Screen Presumptive negative 05/18/22 Unknown Ur Phencyclidine Scrn Presumptive negative 05/18/22 Unknown Ur Amphetamines Screen Presumptive negative 05/18/22 Unknown U Benzodiazepines Scrn Presumptive negative 05/18/22 Unknown Urine Cocaine Screen Presumptive positive 05/18/22 Unknown U Marijuana (THC) Screen Presumptive negative 05/18/22 Unknown Drugs of Abuse Note Disclamer 05/18/22 Unknown Plasma/Serum Alcohol < 0.01 % (0-0.07) 05/18/22 23:53 Microbiology: Microbiology 05/19/22 00:11 Peripheral/Venous Blood Culture - Preliminary Culture in Progress 05/19/22 00:19 Peripheral/Venous Blood Culture - Preliminary Culture in Progress Active Medications - Current Medications Current Medications: Generic Name Dose Route Start Last Admin Trade Name Freq PRN Reason Stop Dose Admin Acetaminophen 650 mg 05/19/22 00:32 Acetaminophen 325 Mg Tab PO Q4H PRN Pain MILD(1-3)/Fever >100.5/AGUILAR Famotidine 20 mg 05/19/22 10:00 Famotidine 20 Mg/2 Ml Inj IV QDAY [facility] Heparin Sodium (Porcine) 5,000 unit 05/19/22 10:00 Heparin 5,000 Unit/1 Ml Vial SUB-Q Q12HR [facility] Sodium Chloride 1,000 mls @ 125 mls/hr 05/19/22 00:45 Nacl 0.9% 1000 Ml IV DIRECT ELVIN Ceftriaxone Sodium 1 gm in 50 mls @ 100 mls/hr 05/20/22 08:00 Rocephin/Ns 1 Gm/50 Ml IV Q24H [facility] Protocol Magnesium Hydroxide 30 ml 05/19/22 00:32 Magnesium Hydroxide (Mom) Oral Liqd Udc PO Q4H PRN Constipation Ondansetron HCl 4 mg 05/19/22 00:32 Ondansetron 4 Mg/2 Ml Inj IV Q8H PRN Nausea And Vomiting Sodium Chloride 10 ml 05/19/22 10:00 Sodium Chloride 0.9% 10 Ml Flush Syringe IV BID ELVIN Sodium Chloride 10 ml 05/19/22 00:32 Sodium Chloride 0.9% 10 Ml Flush Syringe IV PRN PRN LINE FLUSH <MONO CARSON - Last Filed: 05/19/22 17:36> Assessment and Plan Assessment and plan: I saw and evaluated the patient. I agree with the findings and the plan of care as documented in the Nurse Practitioner's~note, with the following corrections and additions. Improved mentation this afternoon but unable to give me information about her medication. 35 MINS Counselling provided on tobacco and substance abuse. Hospitalist Physical - Constitutional Vitals: Temp Pulse Resp BP Pulse Ox 98.5 F 73 16 161/96 98 05/19/22 14:00 05/19/22 16:35 05/19/22 15:00 05/19/22 16:35 05/19/22 16:00 HEART Score - HEART Score Troponin: Troponin T < 0.010 ng/mL (0.00-0.029) 05/19/22 00:11 Results - Labs CBC & Chem 7: 05/18/22 22:01 05/18/22 22:01 Labs: Laboratory Last Values WBC 8.0 K/mm3 (4.5-11.0) 05/18/22 22:01 RBC 2.94 M/mm3 (3.65-5.03) L 05/18/22 22:01 Hgb 10.6 gm/dl (10.1-14.3) 05/18/22 22:01 Hct 31.7 % (30.3-42.9) 05/18/22 22: MCV 108 fl (79-97) H 05/18/22 22:01 MCH 36 pg (28-32) H 05/18/22 22:01 MCHC 33 % (30-34) 05/18/22 22: RDW 14.3 % (13.2-15.2) 05/18/22 22: Plt Count 174 K/mm3 (140-440) 05/18/22 22: Lymph % (Auto) 8.3 % (13.4-35.0) L 05/18/22 22: [place] % (Auto) 6.1 % (0.0-7.3) 05/18/22 22: Eos % (Auto) 0.1 % (0.0-4.3) 05/18/22 22: Baso % (Auto) 0.3 % (0.0-1.8) 05/18/22 22: Lymph # (Auto) 0.7 K/mm3 (1.2-5.4) L 05/18/22 22: [place] # (Auto) 0.5 K/mm3 (0.0-0.8) 05/18/22 22: Eos # (Auto) 0.0 K/mm3 (0.0-0.4) 05/18/22 22: Baso # (Auto) 0.0 K/mm3 (0.0-0.1) 05/18/22 22: Seg Neutrophils % 85.2 % (40.0-70.0) H 05/18/22 22: Seg Neutrophils # 6.8 K/mm3 (1.8-7.7) 05/18/22 22:01 Sodium 137 mmol/L (137-145) 05/18/22 22: Potassium 3.8 mmol/L (3.6-5.0) 05/18/22 22:01 Chloride 107.8 mmol/L (98-107) H 05/18/22 22:01 Carbon Dioxide 15 mmol/L (22-30) L 05/18/22 22:01 Anion Gap 18 mmol/L 05/18/22 22:01 BUN 17 mg/dL (7-17) 05/18/22 22:01 Creatinine 1.8 mg/dL (0.6-1.2) H 05/18/22 22:01 Estimated GFR 35 ml/min 05/18/22 22:01 BUN/Creatinine Ratio 9 % 05/18/22 22:01 Glucose 95 mg/dL (65-100) 05/18/22 22:01 Lactic Acid 0.70 mmol/L (0.7-2.0) 05/19/22 08:36 Calcium 8.9 mg/dL (8.4-10.2) 05/18/22 22:01 Magnesium 1.70 mg/dL (1.7-2.3) 05/18/22 22:01 Total Bilirubin 0.30 mg/dL (0.1-1.2) 05/18/22 22:01 AST 38 units/L (5-40) 05/18/22 22:01 ALT 29 units/L (7-56) 05/18/22 22:01 Alkaline Phosphatase 97 units/L (35-129) 05/18/22 22:01 Troponin T < 0.010 ng/mL (0.00-0.029) 05/19/22 00:11 NT-Pro-B Natriuret Pep 142.6 pg/mL (0-900) 05/19/22 00:11 Total Protein 9.4 g/dL (6.3-8.2) H 05/18/22 22:01 Albumin 3.5 g/dL (3.9-5) L 05/18/22 22:01 Albumin/Globulin Ratio 0.6 % 05/18/22 22:01 Procalcitonin 1.14 ng/mL (<0.15) 05/19/22 08:36 Urine Color Yellow (Yellow) 05/18/22 Unknown Urine Turbidity Hazy (Clear) 05/18/22 Unknown Urine pH 5.0 (5.0-7.0) 05/18/22 Unknown Ur Specific [place] 1.025 (1.003-1.030) 05/18/22 Unknown Urine Protein 100 mg/dl mg/dL (Negative) 05/18/22 Unknown Urine Glucose (UA) Negative mg/dL (Negative) 05/18/22 Unknown Urine Ketones Negative mg/dL (Negative) 05/18/22 Unknown Urine Blood Small (Negative) A 05/18/22 Unknown Urine Nitrite Negative (Negative) 05/18/22 Unknown Urine Bilirubin Negative (Negative) 05/18/22 Unknown Urine Urobilinogen < 2.0 mg/dL (<2.0) 05/18/22 Unknown Ur Leukocyte Esterase Trace (Negative) 05/18/22 Unknown Urine WBC (Auto) 90.0 /HPF (0.0-6.0) H 05/18/22 Unknown Urine RBC (Auto) 7.0 /HPF (0.0-6.0) 05/18/22 Unknown U Epithel Cells (Auto) 6.0 /HPF (0-13.0) 05/18/22 Unknown Urine Bacteria (Auto) 1+ /HPF (Negative) 05/18/22 Unknown Hyaline Casts 2 /LPF 05/18/22 Unknown Urine Mucus Few /HPF 05/18/22 Unknown Urine Yeast (Budding) Few /HPF 05/18/22 Unknown Salicylates < 0.3 mg/dL (2.8-20.0) L 05/18/22 22:01 Urine Opiates Screen Presumptive negative 05/18/22 Unknown Urine Methadone Screen Presumptive negative 05/18/22 Unknown Acetaminophen 5.0 ug/mL (10.0-30.0) L 05/18/22 22:01 Ur Barbiturates Screen Presumptive negative 05/18/22 Unknown Ur Phencyclidine Scrn Presumptive negative 05/18/22 Unknown Ur Amphetamines Screen Presumptive negative 05/18/22 Unknown U Benzodiazepines Scrn Presumptive negative 05/18/22 Unknown Urine Cocaine Screen Presumptive positive 05/18/22 Unknown U Marijuana (THC) Screen Presumptive negative 05/18/22 Unknown Drugs of Abuse Note Disclamer 05/18/22 Unknown Plasma/Serum Alcohol < 0.01 % (0-0.07) 05/18/22 23:53 Microbiology: Microbiology 05/19/22 00:11 Peripheral/Venous Blood Culture - Preliminary Culture in Progress 05/19/22 00:19 Peripheral/Venous Blood Culture - Preliminary Culture in Progress Boogie/IV: Voiding Method Toilet Active Medications - Current Medications Current Medications: Generic Name Dose Route Start Last Admin Trade Name Freq PRN Reason Stop Dose Admin Acetaminophen 650 mg 05/19/22 00:32 Acetaminophen 325 Mg Tab PO Q4H PRN Pain MILD(1-3)/Fever >100.5/AGUILAR Famotidine 20 mg 05/20/22 10:00 Famotidine 20 Mg Tab PO QDAY ELVIN Heparin Sodium (Porcine) 5,000 unit 05/19/22 10:00 05/19/22 11:30 Heparin 5,000 Unit/1 Ml Vial SUB-Q 5,000 unit Q12HR ELVIN Administration Hydralazine HCl 10 mg 05/19/22 16:30 05/19/22 16:35 Hydralazine 20 Mg/1 Ml Inj IV 10 mg Q4H PRN Administration Hypertension Sodium Chloride 1,000 mls @ 100 mls/hr 05/19/22 00:45 05/19/22 12:00 Nacl 0.9% 1000 Ml IV 05/21/22 00:44 100 mls/hr DIRECT ELVIN Administration Ceftriaxone Sodium 1 gm in 50 mls @ 100 mls/hr 05/20/22 08:00 Rocephin/Ns 1 Gm/50 Ml IV Q24H [facility] Protocol Magnesium Hydroxide 30 ml 05/19/22 00:32 Magnesium Hydroxide (Mom) Oral Liqd Udc PO Q4H PRN Constipation Ondansetron HCl 4 mg 05/19/22 00:32 Ondansetron 4 Mg/2 Ml Inj IV Q8H PRN Nausea And Vomiting Sodium Chloride 10 ml 05/19/22 10:00 05/19/22 12:13 Sodium Chloride 0.9% 10 Ml Flush Syringe IV 10 ml BID ELVIN Administration Sodium Chloride 10 ml 05/19/22 00:32 Sodium Chloride 0.9% 10 Ml Flush Syringe IV PRN PRN LINE FLUSH
[2022-05-19] MEDS: HEPARIN 5,000 UNIT/1 ML VIAL SUB-Q SCH ×2 (11:30→22:02)
[2022-05-19] MEDS: SODIUM CHLORIDE 0.9% 1000 ML 1,000 ML IV SCH ×2 (12:00→23:20)
--- NOTE | 2022-05-19 13:51 | Electrocardiograph Report ---
[facility] Test Date: 2022-05-18 Test Time: 22:09:15 Pat Name: RIN PEREZ Department: Room: A251 1 Gender: F Audio Visual Aide: SHYANN : 1965 Requested By: LORENE POMPA Order Number: [id number] Reading MD: Kelsi Burgess Measurements Intervals [place] Rate: 113 P: 67 LA: 165 QRS: 37 QRSD: 81 T: 59 QT: 343 QTc: 470 Interpretive Statements Sinus tachycardia Consider left ventricular hypertrophy No previous ECG available for comparison Electronically Signed On 05-19-2022 13:51:10 EDT by Kelsi Burgess
[2022-05-19] MEDS: hydrALAZINE 20 MG/1 ML INJ IV PRN ×2 (16:35→23:13)
[2022-05-19] MEDS: ACETAMINOPHEN 325 MG TAB PO PRN (19:30)
[2022-05-20 05:16] LABS: BUN/Creatinine Ratio 17; Blood Urea Nitrogen 15 mg/dL (7-17); Calcium 8.3 mg/dL (8.4-10.2); Hemolysis Index 14
[2022-05-20] MEDS: ACETAMINOPHEN 325 MG TAB PO PRN ×2 (06:13→22:06)
[2022-05-20] MEDS: hydrALAZINE 20 MG/1 ML INJ IV PRN ×2 (06:14→22:06)
[2022-05-20 07:59] LABS: Basophils % (Auto) 0.3 % (0.0-1.8); Eosinophils % (Auto) 0.9 % (0.0-4.3); Hematocrit 32.4 % (30.3-42.9); Hemoglobin 10.8 gm/dl (10.1-14.3); Lymphocytes # (Auto) 0.8 K/mm3 (1.2-5.4); Lymphocytes % (Auto) 17.2 % (13.4-35.0); Mean Corpuscular HGB Conc 33 % (30-34); Mean Corpuscular Volume 108 fl (79-97); Monocytes # (Auto) 0.3 K/mm3 (0.0-0.8); Monocytes % (Auto) 6.8 % (0.0-7.3); Platelet Count 137 K/mm3 (140-440); Red Cell Distribution Width 14.6 % (13.2-15.2)
[2022-05-20] MEDS: SODIUM CHLORIDE 0.9% 1000 ML 1,000 ML IV SCH (08:37)
[2022-05-20] MEDS: cefTRIAXone/NS 1 GM/50 ML 1 GM/50 ML BAG IV SCH (09:53)
[2022-05-20] MEDS: HEPARIN 5,000 UNIT/1 ML VIAL SUB-Q SCH ×2 (09:53→22:07)
[2022-05-20] MEDS: FAMOTIDINE 20 MG TAB PO SCH (09:53)
--- NOTE | 2022-05-20 17:01 | Progress Note ---
Assessment and Plan Assessment and plan: This is a 57-year-old female with known past medical history of HIV/AIDS, HTN, polysubstances abuse, and tobacco dependence admitted for unresponsiveness, possible cocaine overdose. Hospital Course to Date: 05/19: Mentation improved this am. Still drowsy and confused, but easily arousable, following commands. Patient is afebrile, cultures, lactic acid, and procal pending. Continue IVF hydration and empiric IV Abx for UTI. Check 2D Echo. Patient also presented with an NOLVIA, most likely vasomotor nephropathy, continue IVF hydration. Continue to monitor renal function, consider nephrology consult if worsen. Okay to start patient on a diet if patient pass bedside swallow. Attempted to get in contact with patient's daughter, Symone Lamb via phone number on record at . But there was no answer, left a voicemail with brief detail and call back information provided. Team will attempt at a later time. Assessment and plan: -- Acute toxic metabolic encephalopathy; Multifactorial, polysubstance abuse Acute kidney injury, urinary tract infection, metabolic acidosis And history of HIV, Treat underlying cause Neurochecks and supportive care -- History of cocaine abuse; Strongly advised to quit recreational drug use, supportive care -- Acute kidney injury; probably due to vasomotor nephropathy Gentle hydration, monitor renal function, avoid nephrotoxin Renal dosing of medication -- Metabolic acidosis; Probably due to dehydration, acute kidney injury Vigorous IV hydration, monitor renal function -- Urinary tract infection; Empiric antibiotics, IV fluids, follow cultures Encourage plenty of oral fluids, ID consult if needed -- Hypertension; moderate control Continue current antihypertensives. As needed medications -- History of HIV; Stable, continue current medications, patient will follow outpatient ID Upon discharge -- Hypophosphatemia; Replenish per protocol Monitor electrolytes -- DVT prophylaxis; Subcu heparin -- Full CODE STATUS; -- Discharge planning per case management Closely monitor the patient and adjust management as needed Plan of care reviewed with the patient and her nurse Plan of care reviewed with the patient as well as her nurse Try to contact family and update patient's condition History Interval history: I have seen and examined the patient at the bedside Patient's chart and medications reviewed No new events reported by the nursing Patient complains of generalized weakness Vital signs noted Hospitalist Physical - Constitutional Vitals: Temp Pulse Resp BP Pulse Ox 98.4 F 64 18 128/76 99 05/20/22 10:14 05/20/22 10:14 05/20/22 13:07 05/20/22 10:14 05/20/22 13:07 General appearance: Present: no acute distress, well-nourished, other (Drowsy, confused) - EENT Eyes: Present: PERRL, EOM intact - Neck Neck: Present: supple, normal ROM - Respiratory Respiratory effort: normal Respiratory: bilateral: diminished, negative: rales, rhonchi, wheezing - Cardiovascular Rhythm: regular Heart Sounds: Present: S1 & S2 - Extremities Extremities: no ischemia, No edema - Abdominal General gastrointestinal: soft, non-tender, non-distended, normal bowel sounds - Integumentary Integumentary: Present: clear, warm - Psychiatric Psychiatric: appropriate mood/affect, cooperative - Neurologic Neurologic: moves all extremities HEART Score - HEART Score Troponin: Troponin T < 0.010 ng/mL (0.00-0.029) 05/19/22 00:11 Results - Labs CBC & Chem 7: 05/20/22 06:40 05/20/22 04:32 Labs: Laboratory Last Values WBC 4.9 K/mm3 (4.5-11.0) 05/20/22 06:40 RBC 3.00 M/mm3 (3.65-5.03) L 05/20/22 06:40 Hgb 10.8 gm/dl (10.1-14.3) 05/20/22 06:40 Hct 32.4 % (30.3-42.9) 05/20/22 06:40 MCV 108 fl (79-97) H 05/20/22 06:40 MCH 36 pg (28-32) H 05/20/22 06:40 MCHC 33 % (30-34) 05/20/22 06:40 RDW 14.6 % (13.2-15.2) 05/20/22 06:40 Plt Count 137 K/mm3 (140-440) L 05/20/22 06:40 Lymph % (Auto) 17.2 % (13.4-35.0) 05/20/22 06:40 [place] % (Auto) 6.8 % (0.0-7.3) 05/20/22 06:40 Eos % (Auto) 0.9 % (0.0-4.3) 05/20/22 06:40 Baso % (Auto) 0.3 % (0.0-1.8) 05/20/22 06:40 Lymph # (Auto) 0.8 K/mm3 (1.2-5.4) L 05/20/22 06:40 [place] # (Auto) 0.3 K/mm3 (0.0-0.8) 05/20/22 06:40 Eos # (Auto) 0.0 K/mm3 (0.0-0.4) 05/20/22 06:40 Baso # (Auto) 0.0 K/mm3 (0.0-0.1) 05/20/22 06:40 Seg Neutrophils % 74.8 % (40.0-70.0) H 05/20/22 06:40 Seg Neutrophils # 3.7 K/mm3 (1.8-7.7) 05/20/22 06:40 Sodium 138 mmol/L (137-145) 05/20/22 04:32 Potassium 3.6 mmol/L (3.6-5.0) 05/20/22 04:32 Chloride 111.6 mmol/L (98-107) H 05/20/22 04:32 Carbon Dioxide 17 mmol/L (22-30) L 05/20/22 04:32 Anion Gap 13 mmol/L 05/20/22 04:32 BUN 15 mg/dL (7-17) 05/20/22 04:32 Creatinine 0.9 mg/dL (0.6-1.2) 05/20/22 04:32 Estimated GFR > 60 ml/min 05/20/22 04:32 BUN/Creatinine Ratio 17 % 05/20/22 04:32 Glucose 87 mg/dL (65-100) 05/20/22 04:32 Lactic Acid 0.70 mmol/L (0.7-2.0) 05/19/22 08:36 Calcium 8.3 mg/dL (8.4-10.2) L 05/20/22 04:32 Phosphorus 1.90 mg/dL (2.5-4.5) L 05/20/22 04:32 Magnesium 1.70 mg/dL (1.7-2.3) 05/20/22 04:32 Total Bilirubin 0.30 mg/dL (0.1-1.2) 05/18/22 22:01 AST 38 units/L (5-40) 05/18/22 22:01 ALT 29 units/L (7-56) 05/18/22 22:01 Alkaline Phosphatase 97 units/L (35-129) 05/18/22 22:01 Troponin T < 0.010 ng/mL (0.00-0.029) 05/19/22 00:11 NT-Pro-B Natriuret Pep 142.6 pg/mL (0-900) 05/19/22 00:11 Total Protein 9.4 g/dL (6.3-8.2) H 05/18/22 22:01 Albumin 3.5 g/dL (3.9-5) L 05/18/22 22:01 Albumin/Globulin Ratio 0.6 % 05/18/22 22:01 Procalcitonin 1.14 ng/mL (<0.15) 05/19/22 08:36 Urine Color Yellow (Yellow) 05/18/22 Unknown Urine Turbidity Hazy (Clear) 05/18/22 Unknown Urine pH 5.0 (5.0-7.0) 05/18/22 Unknown Ur Specific [place] 1.025 (1.003-1.030) 05/18/22 Unknown Urine Protein 100 mg/dl mg/dL (Negative) 05/18/22 Unknown Urine Glucose (UA) Negative mg/dL (Negative) 05/18/22 Unknown Urine Ketones Negative mg/dL (Negative) 05/18/22 Unknown Urine Blood Small (Negative) A 05/18/22 Unknown Urine Nitrite Negative (Negative) 05/18/22 Unknown Urine Bilirubin Negative (Negative) 05/18/22 Unknown Urine Urobilinogen < 2.0 mg/dL (<2.0) 05/18/22 Unknown Ur Leukocyte Esterase Trace (Negative) 05/18/22 Unknown Urine WBC (Auto) 90.0 /HPF (0.0-6.0) H 05/18/22 Unknown Urine RBC (Auto) 7.0 /HPF (0.0-6.0) 05/18/22 Unknown U Epithel Cells (Auto) 6.0 /HPF (0-13.0) 05/18/22 Unknown Urine Bacteria (Auto) 1+ /HPF (Negative) 05/18/22 Unknown Hyaline Casts 2 /LPF 05/18/22 Unknown Urine Mucus Few /HPF 05/18/22 Unknown Urine Yeast (Budding) Few /HPF 05/18/22 Unknown Salicylates < 0.3 mg/dL (2.8-20.0) L 05/18/22 22:01 Urine Opiates Screen Presumptive negative 05/18/22 Unknown Urine Methadone Screen Presumptive negative 05/18/22 Unknown Acetaminophen 5.0 ug/mL (10.0-30.0) L 05/18/22 22:01 Ur Barbiturates Screen Presumptive negative 05/18/22 Unknown Ur Phencyclidine Scrn Presumptive negative 05/18/22 Unknown Ur Amphetamines Screen Presumptive negative 05/18/22 Unknown U Benzodiazepines Scrn Presumptive negative 05/18/22 Unknown Urine Cocaine Screen Presumptive positive 05/18/22 Unknown U Marijuana (THC) Screen Presumptive negative 05/18/22 Unknown Drugs of Abuse Note Disclamer 05/18/22 Unknown Plasma/Serum Alcohol < 0.01 % (0-0.07) 05/18/22 23:53 Microbiology: Microbiology 05/18/22 Unknown Urine,Clean Catch Urine Culture - Preliminary Gram Negative Glenn 05/19/22 00:11 Peripheral/Venous Blood Culture - Preliminary NO GROWTH AFTER 24 HOURS 05/19/22 00:19 Peripheral/Venous Blood Culture - Preliminary NO GROWTH AFTER 24 HOURS Boogie/IV: Voiding Method Toilet Active Medications - Current Medications Current Medications: Generic Name Dose Route Start Last Admin Trade Name Freq PRN Reason Stop Dose Admin Acetaminophen 650 mg 05/19/22 00:32 05/20/22 06:13 Acetaminophen 325 Mg Tab PO 650 mg Q4H PRN Administration Pain MILD(1-3)/Fever >100.5/AGUILAR Famotidine 20 mg 05/20/22 10:00 05/20/22 09:53 Famotidine 20 Mg Tab PO 20 mg QDAY ELVIN Administration Heparin Sodium (Porcine) 5,000 unit 05/19/22 10:00 05/20/22 09:53 Heparin 5,000 Unit/1 Ml Vial SUB-Q 5,000 unit Q12HR ELVIN Administration Hydralazine HCl 10 mg 05/19/22 16:30 05/20/22 06:14 Hydralazine 20 Mg/1 Ml Inj IV 10 mg Q4H PRN Administration Hypertension Sodium Chloride 1,000 mls @ 100 mls/hr 05/19/22 00:45 05/20/22 08:37 Nacl 0.9% 1000 Ml IV 05/21/22 00:44 100 mls/hr DIRECT ELVIN Administration Ceftriaxone Sodium 1 gm in 50 mls @ 100 mls/hr 05/20/22 08:00 05/20/22 09:53 Rocephin/Ns 1 Gm/50 Ml IV 100 mls/hr Q24H ELVIN Administration Protocol Magnesium Hydroxide 30 ml 05/19/22 00:32 Magnesium Hydroxide (Mom) Oral Liqd Udc PO Q4H PRN Constipation Ondansetron HCl 4 mg 05/19/22 00:32 Ondansetron 4 Mg/2 Ml Inj IV Q8H PRN Nausea And Vomiting Potassium Phos/Sodium Phos 1 each 05/20/22 14:00 Phos-Nak Powder Packet PO 05/22/22 06:01 Q8HR ELVIN Sodium Chloride 10 ml 05/19/22 10:00 05/20/22 09:53 Sodium Chloride 0.9% 10 Ml Flush Syringe IV 10 ml BID ELVIN Administration Sodium Chloride 10 ml 05/19/22 00:32 Sodium Chloride 0.9% 10 Ml Flush Syringe IV PRN PRN LINE FLUSH
[2022-05-20] MEDS: PHOS-NAK POWDER PACKET PO SCH ×2 (17:58→22:07)
[2022-05-21] MEDS ORDERED: hydrALAZINE 20 MG/1 ML INJ IV ONE (00:55)
[2022-05-21] MEDS: PHOS-NAK POWDER PACKET PO SCH ×3 (05:47→21:26)
[2022-05-21] MEDS: ACETAMINOPHEN 325 MG TAB PO PRN ×4 (05:47→21:25)
[2022-05-21] MEDS: cefTRIAXone/NS 1 GM/50 ML 1 GM/50 ML BAG IV SCH (07:59)
[2022-05-21] MEDS: HEPARIN 5,000 UNIT/1 ML VIAL SUB-Q SCH ×2 (10:00→21:24)
[2022-05-21] MEDS: FAMOTIDINE 20 MG TAB PO SCH (10:00)
--- NOTE | 2022-05-21 10:56 | Progress Note ---
Assessment and Plan Assessment and plan: Assessment and plan: -- Acute toxic metabolic encephalopathy; Multifactorial, polysubstance abuse Acute kidney injury, urinary tract infection, metabolic acidosis And history of HIV, Treat underlying cause Neurochecks and supportive care -- History of cocaine abuse; Strongly advised to quit recreational drug use, supportive care -- Acute kidney injury; probably due to vasomotor nephropathy Gentle hydration, monitor renal function, avoid nephrotoxin Renal dosing of medication -- Metabolic acidosis; Probably due to dehydration, acute kidney injury Vigorous IV hydration, monitor renal function -- Sepsis secondary to E. coli urinary tract infection; Patient is on Rocephin , culture sensitive to Rocephin , continue Continue IV fluids, supportive care Encourage plenty of oral fluids, ID consult if needed -- Hypertension; moderate control Continue current antihypertensives. As needed medications -- History of HIV; Stable, continue current medications, patient will follow outpatient ID Upon discharge -- Hypophosphatemia; Continue Phos-Nak, monitor electrolytes -- DVT prophylaxis; Subcu heparin -- Full CODE STATUS; -- Discharge planning per case management DC home tomorrow/home health if needed Closely monitor the patient and adjust management as needed Plan of care reviewed with the patient and her nurse Plan of care reviewed with the patient as well as her nurse Try to contact family and update patient's condition --Advance care planning; Family discussion; Advance care planning; +32 minutes I called patient's daughter Ms. Zainab Ashby at [phone] and discussed in detail patient's condition, tests and reports, discharge planning, I informed her that patient is stable to be discharged home on oral antibiotics tomorrow first thing in the morning. I also advised her to discuss with case management regarding the discharge details, she verbalized understanding and agreed with the plan --Preventive health care planning; 35 minutes Patient's drug screen is positive for cocaine; Strongly advised to quit recreational drug use Strongly advised to comply with medications, diet, follow-up visits with physicians Patient verbalized understanding Closely monitor the patient and adjust the management as needed plan of care reviewed with the patient and the nurse 05/19: Mentation improved this am. Still drowsy and confused, but easily arousable, following commands. Patient is afebrile, cultures, lactic acid, and procal pending. Continue IVF hydration and empiric IV Abx for UTI. Check 2D Echo. Patient also presented with an NOLVIA, most likely vasomotor nephropathy, continue IVF hydration. Continue to monitor renal function, consider nephrology consult if worsen. Okay to start patient on a diet if patient pass bedside swallow. Attempted to get in contact with patient's daughter, Symone Lamb via phone number on record at . But there was no answer, left a voicemail with brief detail and call back information provided. Team will attempt at a later time. Today 05/21/2022 patient feels slightly better, complains of generalized weakness Afebrile, on empiric antibiotic Rocephin for her UTI Urine cultures positive for E. coli, sensitivities noted, currently on Rocephin Will discharge on oral tomorrow Levaquin History Interval history: 57-year-old -[place] female patient with significant past medical history of hyper thyroidism, HIV AIDS admitted through emergency room with altered level of consciousness, unresponsive. Evaluation in the emergency room i s consistent with febrile illness, urinary tract infection, metabolic encephalopathy, patient was started on empiric antibiotics, urine cultures were sent for sensitivities, came back pansensitive including Rocephin. We will continue Rocephin and follow clinically. Today 05/21/2022 patient feels slightly better, complains of generalized weakness Afebrile, on empiric antibiotic Rocephin for her UTI Urine cultures positive for E. coli, continue current antibiotics Follow sensitivities Hospitalist Physical - Constitutional Vitals: Temp Pulse Resp BP Pulse Ox 98.0 F 77 18 160/82 99 05/21/22 05:31 05/21/22 05:31 05/21/22 05:31 05/21/22 05:31 05/21/22 05:31 General appearance: Present: no acute distress, well-nourished, other (Drowsy, confused) - EENT Eyes: Present: PERRL, scleral icterus ENT: hearing intact, clear oral mucosa - Neck Neck: Present: supple, normal ROM - Respiratory Respiratory effort: normal Respiratory: bilateral: diminished, negative: rales, rhonchi, wheezing - Cardiovascular Rhythm: regular Heart Sounds: Present: S1 & S2 - Extremities Extremities: no ischemia, No edema - Abdominal General gastrointestinal: soft, non-tender, non-distended, normal bowel sounds - Integumentary Integumentary: Present: clear, warm - Psychiatric Psychiatric: appropriate mood/affect, cooperative - Neurologic Neurologic: CNII-XII intact, moves all extremities HEART Score - HEART Score Troponin: Troponin T < 0.010 ng/mL (0.00-0.029) 05/19/22 00:11 Results - Labs CBC & Chem 7: 05/20/22 06:40 05/20/22 04:32 Labs: Laboratory Last Values WBC 4.9 K/mm3 (4.5-11.0) 05/20/22 06:40 RBC 3.00 M/mm3 (3.65-5.03) L 05/20/22 06:40 Hgb 10.8 gm/dl (10.1-14.3) 05/20/22 06:40 Hct 32.4 % (30.3-42.9) 05/20/22 06:40 MCV 108 fl (79-97) H 05/20/22 06:40 MCH 36 pg (28-32) H 05/20/22 06:40 MCHC 33 % (30-34) 05/20/22 06:40 RDW 14.6 % (13.2-15.2) 05/20/22 06:40 Plt Count 137 K/mm3 (140-440) L 05/20/22 06:40 Lymph % (Auto) 17.2 % (13.4-35.0) 05/20/22 06:40 [place] % (Auto) 6.8 % (0.0-7.3) 05/20/22 06:40 Eos % (Auto) 0.9 % (0.0-4.3) 05/20/22 06:40 Baso % (Auto) 0.3 % (0.0-1.8) 05/20/22 06:40 Lymph # (Auto) 0.8 K/mm3 (1.2-5.4) L 05/20/22 06:40 [place] # (Auto) 0.3 K/mm3 (0.0-0.8) 05/20/22 06:40 Eos # (Auto) 0.0 K/mm3 (0.0-0.4) 05/20/22 06:40 Baso # (Auto) 0.0 K/mm3 (0.0-0.1) 05/20/22 06:40 Seg Neutrophils % 74.8 % (40.0-70.0) H 05/20/22 06:40 Seg Neutrophils # 3.7 K/mm3 (1.8-7.7) 05/20/22 06:40 Sodium 138 mmol/L (137-145) 05/20/22 04:32 Potassium 3.6 mmol/L (3.6-5.0) 05/20/22 04:32 Chloride 111.6 mmol/L (98-107) H 05/20/22 04:32 Carbon Dioxide 17 mmol/L (22-30) L 05/20/22 04:32 Anion Gap 13 mmol/L 05/20/22 04:32 BUN 15 mg/dL (7-17) 05/20/22 04:32 Creatinine 0.9 mg/dL (0.6-1.2) 05/20/22 04:32 Estimated GFR > 60 ml/min 05/20/22 04:32 BUN/Creatinine Ratio 17 % 05/20/22 04:32 Glucose 87 mg/dL (65-100) 05/20/22 04:32 Lactic Acid 0.70 mmol/L (0.7-2.0) 05/19/22 08:36 Calcium 8.3 mg/dL (8.4-10.2) L 05/20/22 04:32 Phosphorus 1.90 mg/dL (2.5-4.5) L 05/20/22 04:32 Magnesium 1.70 mg/dL (1.7-2.3) 05/20/22 04:32 Total Bilirubin 0.30 mg/dL (0.1-1.2) 05/18/22 22:01 AST 38 units/L (5-40) 05/18/22 22:01 ALT 29 units/L (7-56) 05/18/22 22:01 Alkaline Phosphatase 97 units/L (35-129) 05/18/22 22:01 Troponin T < 0.010 ng/mL (0.00-0.029) 05/19/22 00:11 NT-Pro-B Natriuret Pep 142.6 pg/mL (0-900) 05/19/22 00:11 Total Protein 9.4 g/dL (6.3-8.2) H 05/18/22 22:01 Albumin 3.5 g/dL (3.9-5) L 05/18/22 22:01 Albumin/Globulin Ratio 0.6 % 05/18/22 22:01 Procalcitonin 1.14 ng/mL (<0.15) 05/19/22 08:36 Urine Color Yellow (Yellow) 05/18/22 Unknown Urine Turbidity Hazy (Clear) 05/18/22 Unknown Urine pH 5.0 (5.0-7.0) 05/18/22 Unknown Ur Specific [place] 1.025 (1.003-1.030) 05/18/22 Unknown Urine Protein 100 mg/dl mg/dL (Negative) 05/18/22 Unknown Urine Glucose (UA) Negative mg/dL (Negative) 05/18/22 Unknown Urine Ketones Negative mg/dL (Negative) 05/18/22 Unknown Urine Blood Small (Negative) A 05/18/22 Unknown Urine Nitrite Negative (Negative) 05/18/22 Unknown Urine Bilirubin Negative (Negative) 05/18/22 Unknown Urine Urobilinogen < 2.0 mg/dL (<2.0) 05/18/22 Unknown Ur Leukocyte Esterase Trace (Negative) 05/18/22 Unknown Urine WBC (Auto) 90.0 /HPF (0.0-6.0) H 05/18/22 Unknown Urine RBC (Auto) 7.0 /HPF (0.0-6.0) 05/18/22 Unknown U Epithel Cells (Auto) 6.0 /HPF (0-13.0) 05/18/22 Unknown Urine Bacteria (Auto) 1+ /HPF (Negative) 05/18/22 Unknown Hyaline Casts 2 /LPF 05/18/22 Unknown Urine Mucus Few /HPF 05/18/22 Unknown Urine Yeast (Budding) Few /HPF 05/18/22 Unknown Salicylates < 0.3 mg/dL (2.8-20.0) L 05/18/22 22:01 Urine Opiates Screen Presumptive negative 05/18/22 Unknown Urine Methadone Screen Presumptive negative 05/18/22 Unknown Acetaminophen 5.0 ug/mL (10.0-30.0) L 05/18/22 22:01 Ur Barbiturates Screen Presumptive negative 05/18/22 Unknown Ur Phencyclidine Scrn Presumptive negative 05/18/22 Unknown Ur Amphetamines Screen Presumptive negative 05/18/22 Unknown U Benzodiazepines Scrn Presumptive negative 05/18/22 Unknown Urine Cocaine Screen Presumptive positive 05/18/22 Unknown U Marijuana (THC) Screen Presumptive negative 05/18/22 Unknown Drugs of Abuse Note Disclamer 05/18/22 Unknown Plasma/Serum Alcohol < 0.01 % (0-0.07) 05/18/22 23:53 Microbiology: Microbiology 05/19/22 00:11 Peripheral/Venous Blood Culture - Preliminary NO GROWTH AFTER 48 HOURS 05/19/22 00:19 Peripheral/Venous Blood Culture - Preliminary NO GROWTH AFTER 48 HOURS 05/18/22 Unknown Urine,Clean Catch Urine Culture - Preliminary Gram Negative Glenn Boogie/IV: Voiding Method Toilet Active Medications - Current Medications Current Medications: Generic Name Dose Route Start Last Admin Trade Name Freq PRN Reason Stop Dose Admin Acetaminophen 650 mg 05/19/22 00:32 05/21/22 10:05 Acetaminophen 325 Mg Tab PO 650 mg Q4H PRN Administration Pain MILD(1-3)/Fever >100.5/AGUILAR Famotidine 20 mg 05/20/22 10:00 05/21/22 10:00 Famotidine 20 Mg Tab PO 20 mg QDAY ELVIN Administration Heparin Sodium (Porcine) 5,000 unit 05/19/22 10:00 05/21/22 10:00 Heparin 5,000 Unit/1 Ml Vial SUB-Q 5,000 unit Q12HR ELVIN Administration Hydralazine HCl 10 mg 05/19/22 16:30 05/20/22 22:06 Hydralazine 20 Mg/1 Ml Inj IV 10 mg Q4H PRN Administration Hypertension Ceftriaxone Sodium 1 gm in 50 mls @ 100 mls/hr 05/20/22 08:00 05/21/22 07:59 Rocephin/Ns 1 Gm/50 Ml IV 100 mls/hr Q24H ELVIN Administration Protocol Magnesium Hydroxide 30 ml 05/19/22 00:32 Magnesium Hydroxide (Mom) Oral Liqd Udc PO Q4H PRN Constipation Ondansetron HCl 4 mg 05/19/22 00:32 Ondansetron 4 Mg/2 Ml Inj IV Q8H PRN Nausea And Vomiting Potassium Phos/Sodium Phos 1 each 05/20/22 14:00 05/21/22 05:47 Phos-Nak Powder Packet PO 05/22/22 06:01 1 each Q8HR ELVIN Administration Sodium Chloride 10 ml 05/19/22 10:00 05/21/22 10:00 Sodium Chloride 0.9% 10 Ml Flush Syringe IV 10 ml BID ELVIN Administration Sodium Chloride 10 ml 05/19/22 00:32 Sodium Chloride 0.9% 10 Ml Flush Syringe IV PRN PRN LINE FLUSH
[2022-05-21] MEDS: hydrALAZINE 20 MG/1 ML INJ IV PRN ×2 (17:20→21:24)
[2022-05-21 21:26] VITALS: BP 156/96
[2022-05-22] MEDS: ACETAMINOPHEN 325 MG TAB PO PRN ×2 (05:39→09:37)
[2022-05-22] MEDS: PHOS-NAK POWDER PACKET PO SCH (05:40)
--- NOTE | 2022-05-22 08:06 | Discharge Summary ---
Providers - Providers Date of Admission: 05/19/22 00:33 Date of discharge: 05/22/22 Attending physician: FREDY MOSS Primary care physician: LIZET ENGLISH Hospitalization Condition: Stable Exam - Constitutional Vitals: Temp Pulse Resp BP Pulse Ox 98.1 F 80 18 156/96 2 L 05/21/22 21:18 05/21/22 21:24 05/21/22 21:18 05/21/22 21:24 05/21/22 22:00 Plan Activity: advance as tolerated Diet: regular Additional Instructions: If you have worsening symptoms contact MD or go to the nearest emergency room as needed,. Plenty of oral fluids. Advised to see primary care physician in 1 week Follow up with: LIZET ENGLISH MD [Primary Care Provider] - 7 Days Prescriptions: levoFLOXacin [Levaquin] 750 mg PO QDAY #7 tablet Famotidine [Pepcid] 20 mg PO QDAY #14 tablet
[2022-05-22] MEDS: cefTRIAXone/NS 1 GM/50 ML 1 GM/50 ML BAG IV SCH (09:25)
[2022-05-22] MEDS: HEPARIN 5,000 UNIT/1 ML VIAL SUB-Q SCH (09:26)
[2022-05-22] MEDS: FAMOTIDINE 20 MG TAB PO SCH (09:26)
== END 2022-05-22 12:15 | disposition home or self-care (01) | DRG 974 ==
LOC: ED 20:56 → IMCU 05-19 00:33 → CC1 05-19 06:13 → 3A 05-19 18:48
PROVIDERS: ADMIT Internal Medicine Geriatric Medicine; ATTEND Internal Medicine
DX: A41.51 Sepsis due to Escherichia coli [E. coli] (principal); G92.8 Other toxic encephalopathy; B20 Human immunodeficiency virus [HIV] disease; N39.0 Urinary tract infection, site not specified; N17.9 Acute kidney failure, unspecified; E86.0 Dehydration; I10 Essential (primary) hypertension; F17.200 Nicotine dependence, unspecified, uncomplicated; F14.10 Cocaine abuse, uncomplicated; E05.90 Thyrotoxicosis, unspecified without thyrotoxic crisis or storm; E83.39 Other disorders of phosphorus metabolism
CPT/HCPCS: 36415; 70450; 71045; 80048; 80053; 80307; 80320; 81001; 82140; 83735; 83880; 84100; 84145; 84484; 85025; 87040; 87076; 87086; 87186; 93005; 93306; G0378; J3490; C8929; G0480; J0360; J0696; J1644; J2405; J7030